=== PATIENT | male | born 1965 | race Caucasian/White ===

== ENCOUNTER 2017-09-12 19:52 | Emergency (ER) | payer OTHER ==
[2017-09-12] MEDS ORDERED: THIAMINE HCL(*) 200 MG/2 ML IN 100 MG, FOLIC ACID(*) 50 MG/10 ML INJ 1 MG, MULTIVITAMIN... IV ONE (20:09)
[2017-09-12] MEDS ORDERED: LORazepam 2 MG/ML VIAL IVP ONE (20:10)
[2017-09-12] MEDS ORDERED: DIAZEPAM 10 MG TAB PO ONE (20:10)
[2017-09-12 20:22] LABS: PLATELET COUNT, AUTOMATED 121 K/uL (150-450)
--- NOTE | 2017-09-12 20:25 | EKG ---
FACILITY: [facility] PATIENT NAME: ANTOINETTE WEST : [id number] MR: [id number]: [id number] EXAM DATE: ORDERING PHYSICIAN: JESSENIA STREET TECHNOLOGIST: ARY Test Reason : WITHDRAWL Blood Pressure : / mmHG Vent. Rate : 090 BPM Atrial Rate : 090 BPM P-R Int : 138 ms QRS Dur : 078 ms QT Int : 384 ms P-R-T Axes : 065 064 052 degrees QTc Int : 469 ms Normal sinus rhythm Normal ECG No previous ECGs available Confirmed by NIKKI LEWIS ([id number]) on 09/12/2017 8:51:58 PM Referred By: Confirmed By:NIKKI LEWIS
--- NOTE | 2017-09-12 20:29 | ER Report ---
History and Physical Time Seen By MD: 20:12 Hx. of Stated Complaint: PT WANTING TO DETOX. LAST DRINK 4AM. PT WAS LATE FOR WORK AND SENT HOME 3DAYS NO PAY. HPI/ROS CHIEF COMPLAINT: Requesting detox HISTORY OF PRESENT ILLNESS: 52-year-old male with a long history of alcohol use since age 14. Patient got sent home from work with 3 days of no pain as he was late. Patient states he drinks a pint a day plus or -5 beers. She admits to blackouts and eye openers. Patient denies history of withdrawal seizures. Patient has never had previous treatment for alcohol problems. REVIEW OF SYSTEMS: Respiratory: No cough, no dyspnea. Cardiovascular: No chest pain, no palpitations. Gastrointestinal: No vomiting, no abdominal pain. Musculoskeletal: No back pain. Allergies: Coded Allergies: Penicillins (Verified Allergy, Unknown, 09/12/17) Home Meds No Active Prescriptions or Reported Meds Hx Substance Use Disorder: No Hx Alcohol Use: Yes Constitutional Vital Sign - Last 24 Hours 09/12/17 09/12/17 09/12/17 09/12/17 19:58 20:01 20:02 20:07 Temp 98.3 Pulse 90 96 Resp 18 26 B/P (MAP) 209/114 (145) 209/114 173/112 (132) Pulse Ox 95 97 O2 Delivery Room Air 09/12/17 09/12/17 09/12/17 09/12/17 20:22 20:37 20:42 20:57 Pulse 97 108 102 104 Resp 17 20 16 26 B/P (MAP) 157/99 (118) Pulse Ox 96 94 93 94 09/12/17 09/12/17 09/12/17 09/12/17 21:00 21:12 21:27 21:30 Pulse 106 104 Resp 13 28 B/P (MAP) 138/77 (97) 136/92 (107) Pulse Ox 94 92 09/12/17 09/12/17 09/12/17 09/12/17 21:42 21:57 22:00 22:12 Pulse 98 96 90 Resp 12 22 19 B/P (MAP) 136/84 (101) Pulse Ox 92 92 90 09/12/17 09/12/17 22:27 22:30 Pulse 90 Resp 21 B/P (MAP) 141/88 (105) Pulse Ox 92 Physical Exam General Appearance: The patient is alert, has no immediate need for airway protection and no current signs of toxicity. Tachycardic, hypertensive, mild tremor, alcoholic bases HEENT Pupils equal and round no injection. Oropharynx without redness or exudate, mucous membranes are moist Respiratory: Chest is non tender, lungs are clear to auscultation. Cardiac: regular rate and rhythm Gastrointestinal: Abdomen is soft and non tender, no masses, bowel sounds normal. No hepatomegaly Musculoskeletal: Neck: Neck is supple and non tender. No lymphadenopathy, no thyroid enlargement Extremities have full range of motion and are non tender. Skin: No rashes or lesions. DIFFERENTIAL DIAGNOSIS: After history and physical exam differential diagnosis was considered for depression including functional and major depression, situational depression, medication side effect, drugs and alcohol abuse. Medical Decision Making Data Points Result Diagram: 09/12/17200909/12/172009 Laboratory Hematology Test 09/12/17 20:10 09/12/17 20:35 Red Blood Count 5.34 M/uL (4.00-5.60) Mean Corpuscular Volume 96.1 fL (80.0-96.0) Mean Corpuscular Hemoglobin 34.4 pg (26.0-33.0) Mean Corpuscular Hemoglobin Concent 35.7 g/dL (32.0-36.0) Red Cell Distribution Width 13.2 % (11.5-14.5) Mean Platelet Volume 7.1 fL (7.2-11.1) Neutrophils (%) (Auto) 79.0 % (39.4-72.5) Lymphocytes (%) (Auto) 11.5 % (17.6-49.6) Monocytes (%) (Auto) 7.8 % (4.1-12.4) Eosinophils (%) (Auto) 0.3 % (0.4-6.7) Basophils (%) (Auto) 1.4 % (0.3-1.4) Nucleated RBC Relative Count (auto) 0.0 /100WBC Neutrophils # (Auto) 6.2 K/uL (2.0-7.4) Lymphocytes # (Auto) 0.9 K/uL (1.3-3.6) Monocytes # (Auto) 0.6 K/uL (0.3-1.0) Eosinophils # (Auto) 0.0 K/uL (0.0-0.5) Basophils # (Auto) 0.1 K/uL (0.0-0.1) Nucleated RBC Absolute Count (auto) 0.00 K/uL Sodium Level 137 mmol/L (137-145) Potassium Level 3.8 mmol/L (3.5-5.0) Chloride Level 93 mmol/L (98-107) Carbon Dioxide Level 25 mmol/L (22-30) Blood Urea Nitrogen 8 mg/dl (9-21) Creatinine 1.10 mg/dl (0.66-1.25) Glomerular Filtration Rate Calc > 60.0 Random Glucose 146 mg/dl (75-110) Calcium Level 10.1 mg/dl (8.4-10.2) Magnesium Level 1.5 mg/dl (1.7-2.2) Total Bilirubin 3.8 mg/dl (0.2-1.3) Aspartate Amino Transf (AST/SGOT) 185 U/L (0-35) Alanine Aminotransferase (ALT/SGPT) 157 U/L (0-56) Alkaline Phosphatase 88 U/L (0-126) Total Protein 8.4 gm/dl (6.3-8.2) Albumin 5.1 g/dl (3.5-5.0) Salicylates Level < 10 mg/L Salicylate Last Dose Date unk Acetaminophen Level < 10 ug/ml Serum Alcohol < 10 mg/dl Urine Color Yaritza Urine Clarity Slightly-cloudy Urine pH 5.0 pH (4.8-9.5) Urine Specific [place] 1.025 Urine Protein 100 mg/dL (NEGATIVE) Urine Glucose (UA) Negative mg/dL (NEGATIVE) Urine Ketones 20 mg/dL (NEGATIVE) Urine Blood Negative (NEGATIVE) Urine Nitrite Negative (NEGATIVE) Urine Bilirubin Small (NEGATIVE) Urine Urobilinogen 4.0 mg/dL (0.2-1.9) Urine Leukocyte Esterase Negative (NEGATIVE) Urine RBC 1 /HPF (0-2/HPF) Urine WBC 10 /HPF (0-5/HPF) Urine Squamous Epithelial Cells Moderate /LPF (</=FEW) Urine Bacteria Few /HPF (NONE-FEW) Urine Hyaline Casts Many /LPF (NONE-FEW) Urine Granular Casts Moderate /LPF (NONE) Urine Mucus Few /HPF (NONE-FEW) Urine Opiates Screen Negative Urine Barbiturates Screen Negative Ur Tricyclic Antidepressants Screen Negative Urine Phencyclidine Screen Negative Urine Amphetamines Screen Positive Urine Benzodiazepines Screen Negative Urine Cocaine Screen Negative Urine Cannabinoids Screen Negative Chemistry Test 09/12/17 20:10 09/12/17 20:35 White Blood Count 7.8 k/uL (4.5-11.0) Red Blood Count 5.34 M/uL (4.00-5.60) Hemoglobin 18.3 g/dL (14.0-18.0) Hematocrit 51.3 % (42.0-52.0) Mean Corpuscular Volume 96.1 fL (80.0-96.0) Mean Corpuscular Hemoglobin 34.4 pg (26.0-33.0) Mean Corpuscular Hemoglobin Concent 35.7 g/dL (32.0-36.0) Red Cell Distribution Width 13.2 % (11.5-14.5) Platelet Count 121 K/uL (150-450) Mean Platelet Volume 7.1 fL (7.2-11.1) Neutrophils (%) (Auto) 79.0 % (39.4-72.5) Lymphocytes (%) (Auto) 11.5 % (17.6-49.6) Monocytes (%) (Auto) 7.8 % (4.1-12.4) Eosinophils (%) (Auto) 0.3 % (0.4-6.7) Basophils (%) (Auto) 1.4 % (0.3-1.4) Nucleated RBC Relative Count (auto) 0.0 /100WBC Neutrophils # (Auto) 6.2 K/uL (2.0-7.4) Lymphocytes # (Auto) 0.9 K/uL (1.3-3.6) Monocytes # (Auto) 0.6 K/uL (0.3-1.0) Eosinophils # (Auto) 0.0 K/uL (0.0-0.5) Basophils # (Auto) 0.1 K/uL (0.0-0.1) Nucleated RBC Absolute Count (auto) 0.00 K/uL Glomerular Filtration Rate Calc > 60.0 Calcium Level 10.1 mg/dl (8.4-10.2) Magnesium Level 1.5 mg/dl (1.7-2.2) Total Bilirubin 3.8 mg/dl (0.2-1.3) Aspartate Amino Transf (AST/SGOT) 185 U/L (0-35) Alanine Aminotransferase (ALT/SGPT) 157 U/L (0-56) Alkaline Phosphatase 88 U/L (0-126) Total Protein 8.4 gm/dl (6.3-8.2) Albumin 5.1 g/dl (3.5-5.0) Salicylates Level < 10 mg/L Salicylate Last Dose Date unk Acetaminophen Level < 10 ug/ml Serum Alcohol < 10 mg/dl Urine Color Yaritza Urine Clarity Slightly-cloudy Urine pH 5.0 pH (4.8-9.5) Urine Specific [place] 1.025 Urine Protein 100 mg/dL (NEGATIVE) Urine Glucose (UA) Negative mg/dL (NEGATIVE) Urine Ketones 20 mg/dL (NEGATIVE) Urine Blood Negative (NEGATIVE) Urine Nitrite Negative (NEGATIVE) Urine Bilirubin Small (NEGATIVE) Urine Urobilinogen 4.0 mg/dL (0.2-1.9) Urine Leukocyte Esterase Negative (NEGATIVE) Urine RBC 1 /HPF (0-2/HPF) Urine WBC 10 /HPF (0-5/HPF) Urine Squamous Epithelial Cells Moderate /LPF (</=FEW) Urine Bacteria Few /HPF (NONE-FEW) Urine Hyaline Casts Many /LPF (NONE-FEW) Urine Granular Casts Moderate /LPF (NONE) Urine Mucus Few /HPF (NONE-FEW) Urine Opiates Screen Negative Urine Barbiturates Screen Negative Ur Tricyclic Antidepressants Screen Negative Urine Phencyclidine Screen Negative Urine Amphetamines Screen Positive Urine Benzodiazepines Screen Negative Urine Cocaine Screen Negative Urine Cannabinoids Screen Negative Toxicology Test 09/12/17 20:10 09/12/17 20:35 Salicylates Level < 10 mg/L Salicylate Last Dose Date unk Acetaminophen Level < 10 ug/ml Serum Alcohol < 10 mg/dl Urine Opiates Screen Negative Urine Barbiturates Screen Negative Ur Tricyclic Antidepressants Screen Negative Urine Phencyclidine Screen Negative Urine Amphetamines Screen Positive Urine Benzodiazepines Screen Negative Urine Cocaine Screen Negative Urine Cannabinoids Screen Negative Urinalysis Test 09/12/17 20:35 Urine Color Yaritza Urine Clarity Slightly-cloudy Urine pH 5.0 pH (4.8-9.5) Urine Specific [place]auer 1.025 Urine Protein 100 mg/dL (NEGATIVE) Urine Glucose (UA) Negative mg/dL (NEGATIVE) Urine Ketones 20 mg/dL (NEGATIVE) Urine Blood Negative (NEGATIVE) Urine Nitrite Negative (NEGATIVE) Urine Bilirubin Small (NEGATIVE) Urine Urobilinogen 4.0 mg/dL (0.2-1.9) Urine Leukocyte Esterase Negative (NEGATIVE) Urine RBC 1 /HPF (0-2/HPF) Urine WBC 10 /HPF (0-5/HPF) Urine Squamous Epithelial Cells Moderate /LPF (</=FEW) Urine Bacteria Few /HPF (NONE-FEW) Urine Hyaline Casts Many /LPF (NONE-FEW) Urine Granular Casts Moderate /LPF (NONE) Urine Mucus Few /HPF (NONE-FEW) EKG/Imaging EKG Interpretation 12 lead EK Rhythm: normal sinus rhythm [place]: normal QRS: normal ST segments: normal, no evidence of ischemia or dysrhythmia ED Course/Re-evaluation Clinical Indication for ER IV: Hydration, IV Access ED Course Patient was admitted to an examination room. H&P was done. The differential diagnoses was considered. On clinical examination. Patient has mild beginnings of withdrawal. It's been 24 hours since his last alcohol. Patient' s requesting admission to detox. Medical evaluation is completed. He does have some elevated LFTs. He has elevated MCV. Patient's tox screen has amphetamines. 09/12/2017 9:23:22 pm case discussed with Dr. Osuna psychiatrist on-call, who accepts the patient for addition to detox. Decision to Disposition Date: September 12, 2017 Decision to Disposition Time: 20:17 Depart Departure Latest Vital Signs Vital Signs Date Time Temp Pulse Resp B/P (MAP) Pulse Ox O2 Delivery O2 Flow Rate FiO2 09/12/17 22:30 141/88 (105) 09/12/17 22:27 90 21 92 09/12/17 20:01 98.3 Room Air Impression: Primary Impression: Alcohol dependence Condition: Improved Disposition: HOME OR SELF-CARE New Scripts No Active Prescriptions or Reported Meds Problem Qualifiers Primary Impression: Alcohol dependence Substance use status: uncomplicated Qualified Codes: F10.20 - Alcohol dependence, uncomplicated JADJESSENIA September 12, 2017 20:29
[2017-09-12 22:30] VITALS: BP 141/88
== END 2017-09-12 22:40 ==
LOC: ER 20:28
DX: F10.20 Alcohol dependence, uncomplicated (principal); R79.89 Other specified abnormal findings of blood chemistry
CPT/HCPCS: 80305; 80320; 80329; 81001; 83735; 84443; 85025; 93005; 96365; 96375; 99285; J2060; J3411; J3475; J7030; 82040; 82247; 82310; 82374; 82435; 82565; 82947; 84075; 84132; 84155; 84295; 84450; 84460; 84520

== ENCOUNTER 2017-09-12 21:53 | Inpatient (IN) | payer OTHER ==
[~2017-09-12] VITALS: Ht 177.8 cm; Wt 95.3 kg
[2017-09-12 22:58] VITALS: BP 167/105
[2017-09-12] MEDS ORDERED: LORazepam 1 MG TAB PO ONE (23:20)
[2017-09-13] VITALS (7 sets, daily range): BP systolic 142–188; BP diastolic 89–126
[2017-09-13] MEDS: LORazepam 1 MG TAB PO ONE ×2 (01:35→01:54)
[2017-09-13] MEDS: THIAMINE HCL 100 MG TAB PO SCH (08:38)
[2017-09-13] MEDS: LORazepam 1 MG TAB PO PRN ×4 (08:38→21:14)
[2017-09-13] MEDS: FOLIC ACID 1 MG TAB PO SCH (08:38)
[2017-09-13] MEDS: MULTIVITAMINS TAB PO SCH (08:38)
[2017-09-13] MEDS ORDERED: PATCH REMOVAL 1 EA TP SCH (09:00)
[2017-09-13] MEDS ORDERED: NICOTINE 21 MG/24 HR PATCH TD SCH (09:00)
[2017-09-13] MEDS ORDERED: NICOTINE POLACRILEX 2 MG GUM PO PRN (11:35)
[2017-09-13] MEDS ORDERED: LOPERAMIDE HCL 2 MG CAP PO PRN (13:00)
[2017-09-13] MEDS ORDERED: LOPERAMIDE HCL 2 MG CAP PO ONE (13:00)
[2017-09-14 01:00] VITALS: BP 181/119
[2017-09-14 05:26] VITALS: BP 181/124
[2017-09-14 06:22] LABS: PLATELET COUNT, AUTOMATED 101 K/uL (150-450)
[2017-09-14] MEDS ORDERED: cloNIDine HCL 0.1 MG TAB PO ONE (06:40)
[2017-09-14] MEDS: LORazepam 1 MG TAB PO PRN (06:42)
[2017-09-14] MEDS: THIAMINE HCL 100 MG TAB PO SCH (07:30)
[2017-09-14] MEDS: FOLIC ACID 1 MG TAB PO SCH (07:30)
[2017-09-14] MEDS: MULTIVITAMINS TAB PO SCH (07:30)
[2017-09-14 10:15] VITALS: BP 174/98
[2017-09-14] MEDS ORDERED: LORazepam 1 MG TAB PO PRN (11:00)
--- NOTE | 2017-09-14 11:05 | BHS Progress Note ---
BHS - Subjective Progress Notes Subjective Continues on NWI protocol, receiving Ativan for alcohol withdrawal symptoms, alcohol withdrawal nearing completion Denies urge to drink, requesting information on outpatient support services to assist with maintaining sobriety Family supportive, currently employed. "I feel like I've let my kids down." Guil/shame "pretty high" Anxiety "I just have so many projects I haven't finished." Fine tremor, denies nausea, diarrhea Last 6-7 years heavy drinking Suicidal Ideation: None Homicidal Ideation: None S - Objective Physical Exam Vital Signs Vital Signs Date Time Temp Pulse Resp B/P (MAP) Pulse Ox O2 Delivery O2 Flow Rate FiO2 09/14/17 05:26 99.8 66 181/124 (143) 96 Room Air 09/13/17 16:55 18 Muscle Strength and Tone: WNL, Other Gait and Station: Steady [facility] Medications Reviewed: Side Effects, Benefits of Medication, Risks Allergies Reviewed: Yes Mental Status Exam General Appearance: Casual, Well Groomed, Good Eye Contact, Cooperative, Polite , Good Interaction Speech: Clear, Spontaneous, Normal Rate, Normal Rhythm, Normal Volume, Normal Tone Mood: Euthymic Affect: Full and Appropriate, Calm Thought Process: Organized, Logical, Goal Directed Thought Content: No Suicidal Ideation, No Homicidal Ideation, No Delusions, No Auditory Halllucinations, No Visual Hallucinations, No Thought Broadcasting, No Ideas of Reference, No Obsessions, No Compulsions Sensorium: Clear Cognition: Alert & Oriented-Person, Alert & Oriented-Place, Alert & Oriented- Time, [id number]-Ooozernsr Memory: Immediate, Recent, Remote Intelligence: Average Insight Judgment: Intact, Appropriate Result Diagram: 09/14/17 0613 09/14/17 0613 Lab Laboratory Tests Test 09/14/17 06:13 White Blood Count 4.2 k/uL Red Blood Count 4.67 M/uL Hemoglobin 16.1 g/dL Hematocrit 44.7 % Mean Corpuscular Volume 95.8 fL Mean Corpuscular Hemoglobin 34.5 pg Mean Corpuscular Hemoglobin Concent 35.9 g/dL Red Cell Distribution Width 12.5 % Platelet Count 101 K/uL Mean Platelet Volume 7.4 fL Neutrophils (%) (Auto) 56.2 % Lymphocytes (%) (Auto) 26.4 % Monocytes (%) (Auto) 10.8 % Eosinophils (%) (Auto) 6.4 % Basophils (%) (Auto) 0.2 % Nucleated RBC Relative Count (auto) 0.0 /100WBC Neutrophils # (Auto) 2.4 K/uL Lymphocytes # (Auto) 1.1 K/uL Monocytes # (Auto) 0.5 K/uL Eosinophils # (Auto) 0.3 K/uL Basophils # (Auto) 0.0 K/uL Nucleated RBC Absolute Count (auto) 0.00 K/uL Sodium Level 136 mmol/L Potassium Level 3.4 mmol/L Chloride Level 99 mmol/L Carbon Dioxide Level 23 mmol/L Blood Urea Nitrogen 8 mg/dl Creatinine 0.90 mg/dl Glomerular Filtration Rate Calc > 60.0 Random Glucose 103 mg/dl Calcium Level 9.4 mg/dl Magnesium Level 1.9 mg/dl Total Bilirubin 2.6 mg/dl Aspartate Amino Transf (AST/SGOT) 87 U/L Alanine Aminotransferase (ALT/SGPT) 115 U/L Alkaline Phosphatase 75 U/L Total Protein 6.3 gm/dl Albumin 3.8 g/dl Current Medications Medications (Trade) Dose Ordered Sig/Eric Route PRN Reason Start Time Stop Time Status Last Admin Dose Admin Multivitamins (Thera-M Enhanced Tab (Or Equiv)) 1 each QDAY PO 09/13/17 09:00 10/13/17 08:59 09/14/17 07:30 Thiamine HCl (Vitamin B-1(*) 100 Mg Tab (Or Equiv)) 100 mg QDAY PO 09/13/17 09:00 10/13/17 08:59 09/14/17 07:30 Folic Acid (Folic Acid (*) 1 Mg Tab) 1 mg QDAY PO 09/13/17 09:00 10/13/17 08:59 09/14/17 07:30 Lorazepam (Ativan(*) 1 Mg Tab (Or Equiv)) 2 mg ONCE ONCE PO 09/12/17 23:20 09/12/17 23:24 DC 09/12/17 23:31 Nicotine (Nicoderm Cq(*) 21 Mg/24 Hr (Or Equiv)) 21 mg QDAY TD 09/13/17 09:00 09/13/17 11:34 DC Lorazepam (Ativan(*) 1 Mg Tab (Or Equiv)) 1 mg ONCE ONCE PO 09/13/17 01:35 09/13/17 01:48 DC 09/13/17 01:35 Lorazepam (Ativan(*) 1 Mg Tab (Or Equiv)) 2 mg PRN PRN PO FOLLOW NWI/ADWOA PROTOCOL 09/13/17 08:25 09/27/17 08:24 09/14/17 06:42 Nicotine Polacrilex (Nicorette 2 Mg Gum (Or Equiv)) 2 mg Q2H PRN PO NICOTINE REPLACEMENT 09/13/17 11:35 10/13/17 11:34 09/14/17 07:33 Loperamide HCl (Imodium 2 Mg Cap (Or Equiv)) 2 mg PRN PRN PO DIARRHEA 09/13/17 13:00 10/13/17 12:59 Loperamide HCl (Imodium 2 Mg Cap (Or Equiv)) 4 mg ONCE ONCE PO 09/13/17 13:00 09/13/17 13:04 DC 09/13/17 13:11 Clonidine HCl (Catapres(*) 0.1 Mg Tab (Or Equiv)) 0.1 mg ONCE ONCE PO 09/14/17 06:40 09/14/17 06:47 DC 09/14/17 07:31 Lorazepam (Ativan(*) 1 Mg Tab (Or Equiv)) Take 1-2 mg per NWI Protocol. PRN PRN PO FOLLOW NWI/ADWOA PROTOCOL 09/14/17 11:00 09/28/17 10:59 UNV S Assessment and Plan Idye-ja-Fkna Encounter Date: September 14, 2017 Thuc-ke-Lojj Encounter Time: 11:02 S Plan: Admit to Unit, Necessary Precautions, Individual/Group Therapy, Admin /Titrate Meds, Educate Patient Problems: (1) Alcohol dependence Status: Chronic (2) Alcohol withdrawal Status: Acute Condition Continue current medications Continue NWI rotocol Consult w/hospitalist regarding elevated blood pressure, will start Toprol XL 50 mg po daily for HTN. NESTOR PUGH NP September 14, 2017 11:05
[2017-09-14] MEDS: METOPROLOL SUCC XL 50 MG TABCR 50 MG TAB.ER.24H PO SCH (14:18)
--- NOTE | 2017-09-14 14:55 | HISTORY AND PHYSICAL ---
DATE OF ADMISSION: September 12, 2017 "DELETE THIS DICTATION, PLEASE." MTDD
[2017-09-14 15:33] VITALS: BP 146/100
[2017-09-14 19:30] VITALS: BP 162/111
[2017-09-15 00:36] VITALS: BP 192/116
[2017-09-15 05:13] VITALS: BP 198/119
[2017-09-15] MEDS ORDERED: cloNIDine HCL 0.1 MG TAB PO ONE (07:45)
[2017-09-15] MEDS: METOPROLOL SUCC XL 50 MG TABCR 50 MG TAB.ER.24H PO SCH (07:57)
[2017-09-15] MEDS: THIAMINE HCL 100 MG TAB PO SCH (07:57)
[2017-09-15] MEDS: MULTIVITAMINS TAB PO SCH (07:57)
[2017-09-15] MEDS: FOLIC ACID 1 MG TAB PO SCH (07:57)
[2017-09-15] MEDS ORDERED: METO-233 PO (10:29)
[2017-09-15] MEDS ORDERED: MULT-859 PO (10:29)
[2017-09-15 10:30] VITALS: BP 142/92
[2017-09-15] MEDS ORDERED: NICO-219 BC (10:30)
--- NOTE | 2017-09-16 11:32 | SCHAAF H&P ---
DATE OF ADMISSION: September 12, 2017 DATE OF INTERVIEW: September 13, 2017, approximately 0900 hours. ATTENDING PHYSICIAN Leroy Julio MD PRESENTING PROBLEM, CHIEF COMPLAINT "I have been drinking way too much lately." HISTORY OF PRESENT ILLNESS This is a very pleasant 52-year-old male who presented to the emergency room from the [place] area for help with alcohol detox. Patient reported he had started with beer, and then started adding vodka, then drinking more vodka. Patient quick to admit that he has not had any period of any kind of real abstinence since about 2011. However, his drinking in general has continued to increase. Patient reports he has been drinking for 35 years. Some work stressors exist that are likely a result of increasing alcohol use. Patient reports he wants help to detox, as he has tried to at home, and this did not go well. Patient again presenting voluntarily, denying any other symptoms of psychiatric concern. MENTAL HEALTH HISTORY The patient reports no previous psychiatric inpatient appointments. Patient reports no outpatient care for alcoholism or any other psychiatric concerns. Patient has never been to rehab, denies any history of suicide thoughts or attempt. MEDICATIONS Patient not on any medications currently. FAMILY PSYCHIATRIC HISTORY The patient reports his father likely suffered from anxiety. Patient's mom used alcohol and prescription drug medications to excess. Mother has now passed. She apparently took too many likely opiate pain-based meds according to the patient. Patient reports his maternal grandfather also suffered from alcoholism as well as one of the patient's sisters drinks too much. Patient denies any suicides in the family history. PAST MEDICAL HISTORY Significant for a cardiac stent that was put in when the patient was 29 years old. He has some environmental allergies and an allergy to penicillin. He is not currently on any medication. Notably, patient was on blood thinners in the past. Patient stated he had stopped them a long time ago. SOCIAL HISTORY The patient was born in [place], raised there. Parents were at the time of his . They when he was about 17 years old. Patient has an older brother and an older sister. He is a high school graduate, did two years in college. Patient has been one time x 26 years. He has four children. He has worked at [email or web address] on the [employer] side in [place] for almost two years. Before that, patient worked for a [employer] for 21 years. Patient lives in [place]. Patient reports good relationship with his and a good childhood growing up, free of any abuse. Patient denies any legal history, including DUI. Substance abuse history. Patient reports drinking about 35 years. He chews tobacco as well. Patient realized about 20 years ago that alcohol is probably causing problems in his life, and that he drinks too much. Patient's , he states, does not drink. PHYSICAL EXAMINATION Please see emergency room note. Notable for cooperative 52-year-old male, no acute medical distress. Vital signs at the time of admission: Temperature 98.3 , pulse 90, respiratory rate 18, blood pressure 209/114 and pulse oximetry 95% on room air. LABORATORY DATA CBC notable for hemoglobin elevated at 18.3, MCV elevated at 96.1, MCH elevated at 34.4, platelet count low at 121,000. Chemistry panel notable for AST and ALT elevated at 185 and 157 with a total bilirubin elevated at 3.8. Magnesium slightly low at 1.5. TSH slightly out of limits at 4.82. Urinalysis showed urine protein present. Toxicology screen positive for amphetamines, patient denies using. Negative for any alcohol. MENTAL STATUS EXAMINATION GENERAL APPEARANCE, BEHAVIOR AND ATTITUDE: This is very polite 52-year-old male , interviewed in a state of being treated for alcohol withdrawal. Patient able to convey that he wants help with alcohol, probably does not want to go to residential treatment, but does want to learn ways to abstain once alcohol withdrawal is complete. Patient making good eye contact. No bizarre mannerisms or tics. No psychomotor agitation or retardation. SPEECH: Within normal limits. Regular rate, rhythm, volume and tone. MOOD: Described as frustrated with alcoholism. AFFECT: Overall full and mood congruent. THOUGHT PROCESSES: Logical, goal-directed, no loose associations or flight of ideas. THOUGHT CONTENT: Free of auditory or visual hallucinations, ideas of reference , thought broadcastings, delusions, obsessions or compulsions. Patient adamantly denying suicidal or homicidal ideation. SENSORIUM: Clear. COGNITION: Alert and oriented to person, place, time and situation. MEMORY: Immediate, recent and remote estimated intact. INTELLIGENCE: Average, based on interview. INSIGHT AND JUDGMENT: Considered grossly intact in the absence of alcohol use. Patient presenting voluntarily for treatment for alcohol withdrawal. ASSESSMENT This is a polite 52-year-old male with significant alcohol use disorder. Patient being treated with lorazepam to avoid further hepatic impairment. Will have labs drawn in the morning to verify hepatic condition. Will work with patient to rectify alcohol withdrawal and encourage patient to abstain on an outpatient basis. Will encourage residential treatment as well. DIAGNOSES PER DSM-V Alcohol withdrawal. Alcohol use disorder, severe. Patient reports supportive relationship with family. PLAN 1. Admit to the unit. 2. Necessary precautions will be implemented. 3. Patient will participate in individual and group therapy. 4. Medications will be administered, titrated accordingly. 5. Collateral information to be obtained as necessary. 6. Discussion took place with patient on the need of potential hypertensive medications if hypertension persists in the absence of alcohol. Discussion took place regarding patient may need blood thinners again with history of cardiac stent in the absence of chronic alcohol use as well. Patient indicated an understanding. 7. Estimated length of stay three to five days. MTDD
--- NOTE | 2017-09-17 13:30 | DISCHARGE SUMMARY ---
ADMISSION DATE: September 12, 2017 DISCHARGE DATE: September 15, 2017 FINAL DIAGNOSES PER DSM-V Alcohol use disorder, severe. Tobacco use disorder. REASON FOR ADMISSION Patient was admitted to the unit on a voluntary basis after he presented requesting help with alcohol withdrawal. PHYSICAL EXAMINATION Patient is in no acute distress on the morning of discharge. Vital signs include temperature 99.1, pulse 67, pulse oximetry 95% on room air. For complete review of systems, please see ER records. LABORATORY DATA Laboratory data completed in the emergency room: Sodium was low at 136, BUN low at 8. Total bilirubin 2.6 and high. AST 87 and high, ALT at 115 and high. White blood cell count 4200 and low. MCH 34.5 and high. Platelets 101,000 and low. Hemoglobin high at 18.3. MCV at 96.1 and high. MCH 34.4 and high. Platelets 121,000 and low. MPV 7.1 and low. Neutrophils 79 and high, lymphocytes 11.5 and low. Upon admission to the emergency room, he was negative for salicylates, acetaminophen, and alcohol. His urine drug screen was positive for amphetamines. MENTAL STATUS EXAMINATION GENERAL APPEARANCE, BEHAVIOR AND ATTITUDE: This is a 52-year-old male who appears his stated age. He is dressed in hospital scrubs per protocol. He is pleasant and cooperative and interactive with clinicians. No abnormal psychomotor activity is noted. SPEECH: Clear, spontaneous and of normal rate, rhythm and volume. MOOD: Described as better. AFFECT: Rangeful and appropriate. THOUGHT PROCESSES: Logical and goal-directed. No loose associations or flight of ideas. THOUGHT CONTENT: He denies suicidal thoughts, denies homicidal thoughts, denies hallucinations. No delusions are elicited. SENSORIUM: Clear. COGNITION: Clear. He is oriented to person, place, day, date and situation. MEMORY: Immediate, recent and remote estimated grossly intact. INTELLIGENCE: Average, based upon interview. INSIGHT AND JUDGMENT: Fair. He reports understanding that he has a problem with alcohol and that it is important that he receive ongoing outpatient treatment to assist him in maintaining his sobriety. TREATMENT Patient was monitored per the [facility] protocol. His alcohol withdrawal period was moderate. His blood pressure remained high and the nurse practitioner consulted with the hospitalist on September 14, and was recommended that patient start Toprol, which was initiated on September 14, 2017. CONDITION OF PATIENT ON DISCHARGE He is considered stable and a minimal risk to himself and others, appropriate for outpatient management. DISPOSITION Patient is discharged to home in the care of his . DISCHARGE INSTRUCTIONS No routine medications for psychiatric reasons are recommended. However, it is recommended he continue the Toprol, which was initiated. It is strongly recommended that he follow up with primary care provider regarding his hypertension. He does have a cardiac history. He is recommended to abstain from all alcohol and illicit substances, and it is highly recommended that he follow up with outpatient care. At this point he is choosing whether he wishes to follow up in [place], [place] or [place] or [place], [place], as [facility] has limited resources. ALL
== END 2017-09-15 11:50 | disposition home or self-care (01) | DRG 897 ==
LOC: BHS 21:53
PROVIDERS: ADMIT Psychiatry & Neurology Psychiatry; ATTEND Psychiatry & Neurology Psychiatry
DX: F10.230 Alcohol dependence with withdrawal, uncomplicated (principal); F17.220 Nicotine dependence, chewing tobacco, uncomplicated; Y90.0 Blood alcohol level of less than 20 mg/100 ml; Z81.1 Family history of alcohol abuse and dependence; Z81.8 Family history of other mental and behavioral disorders; Z88.0 Allergy status to penicillin; Z95.5 Presence of coronary angioplasty implant and graft; Z81.3 Family history of other psychoactive substance abuse and dependence
CPT/HCPCS: 36415; 82040; 82247; 82310; 82374; 82435; 82565; 82947; 83735; 84075; 84132; 84155; 84295; 84450; 84460; 84520; 85025